=== PATIENT | female | born 1980 | race American Indian/Alaskan Native ===

== ENCOUNTER 2018-11-24 21:38 | Emergency (ER) | payer MEDICAID, MEDICARE, OTHER ==
[2018-11-24 21:38] VITALS: BMI 40.6
[2018-11-24 21:42] VITALS: BP 133/100; PULSE 85; RESP 16; TEMP 98.5; O2SAT 100
[2018-11-24 22:37] LABS: BASO # 0.1 K/uL (0.0-0.2); BASO % 0.8 % (0.0-2.0); EOS # 0.1 K/uL (0.0-0.7); EOS % 2.1 % (0.0-4.0); HEMOGLOBIN 11.4 g/dL (12.0-16.0); LYMPH # 1.6 K/uL (1.0-4.3); LYMPH % 24.8 % (20.0-40.0); MEAN CELL VOLUME 83.4 fl (81.0-99.0); MEAN CORPUSCULAR HEMOGLOBIN 26.8 pg (27.0-31.0); MEAN CORPUSCULAR HGB CONC 32.2 g/dL (33.0-37.0); MEAN PLATELET VOLUME 8.9 fl (7.2-11.7); MONO # 0.5 K/uL (0.0-0.8); MONO % 8.2 % (0.0-10.0); NEUT # 4.1 K/uL (1.8-7.0); NEUT % 64.1 % (50.0-75.0); NRBC % 0.1 % (0.0-0.0); RBC 4.26 Mil/uL (3.80-5.20); RED CELL DISTRIBUTION WIDTH 15.7 % (11.5-14.5); WHITE BLOOD COUNT 6.4 K/uL (4.8-10.8)
--- NOTE | 2018-11-24 22:46 | ED PDOC ---
HPI: Psych/Substance Abuse Time Seen by Provider: 11/24/18 21:52 Chief Complaint (Nursing): Substance Abuse Chief Complaint (Provider): substance abuse History Per: Patient, EMS Additional Complaint(s): 38 y/o female brought in by EMS for evaluation of substance abuse. Patient admits to using cocaine tonight; states she wants to be admitted so she can get off the streets. PAtient states she wants to talk to someone about her "mental health problems"; noncompliant with medications. Denies suicidal/homicidal ideations. Past Medical History Reviewed: Historical Data, Nursing Documentation, Vital Signs Vital Signs: Last Vital Signs Temp 98.5 F 11/24/18 21:39 Pulse 85 11/24/18 21:39 Resp 16 11/24/18 21:39 BP 133/100 H 11/24/18 21:39 Pulse Ox 100 11/24/18 21:39 - Medical History PMH: Anxiety, Bipolar Disorder, Depression, Personality Disorder, Schizophrenia Denies: Arthritis, Crohn's Disease, Diabetes, Diverticulitis, Fractures, Gastritis, Gall Bladder Disease, Hepatitis, HIV, HTN, Kidney Stones, Osteoporosis, Pancreatitis, Chronic Kidney Disease, Rheumatoid Arthritis, Se izures, Sexually Transmitted Disease - Surgical History Surgical History: Denies: Appendectomy - Family History Family History: States: Unknown Family Hx - Immunization History Hx Tetanus Toxoid Vaccination: Yes Hx Influenza Vaccination: No Hx Pneumococcal Vaccination: No - Home Medications Home Medications: Ambulatory Orders Medication Instructions Recorded No Known Home Med 11/16/18 - Allergies Allergies/Adverse Reactions: Allergies Allergy/AdvReac Type Severity Reaction Status Date / Time No Known Allergies Allergy Verified 11/24/18 21:39 Review of Systems ROS Statement: Except As Marked, All Systems Reviewed And Found Negative Physical Exam - Reviewed Nursing Documentation Reviewed: Yes Vital Signs Reviewed: Yes - Physical Exam Appears: Positive for: Well, Non-toxic, Uncomfortable (anxious, paranoid) Head Exam: Positive for: ATRAUMATIC, NORMAL INSPECTION, NORMOCEPHALIC Skin: Positive for: Normal Color Eye Exam: Positive for: Normal appearance ENT: Positive for: Normal ENT Inspection Cardiovascular/Chest: Positive for: Regular Rate, Rhythm Respiratory: Positive for: Normal Breath Sounds Gastrointestinal/Abdominal: Positive for: Normal Exam Back: Positive for: Normal Inspection Extremity: Positive for: Normal ROM Neurologic/Psych: Positive for: Alert, Oriented (x3) - Laboratory Results Result Diagrams: 11/24/18 22:31 11/24/18 22:31 - ECG O2 Sat by Pulse Oximetry: 100 - Progress ED Course And Treament: -accucheck -cbc -cmp -alcohol -urine drug screen -urinalysis -crisis eval 3:30 Patient awake, alert, oriented x3. Ambulating steady gait Patient evaluated by nozzle worker; does not meet criteria for admission at this time as per Dr. Lake Patient becoming aggressive towards ED staff. Refusing to leave Patient requires no further intervention in the ED and is stable for discharge at this time Patient removed from ED by security/[employer] police Disposition - Clinical Impression Clinical Impression: Substance abuse - Patient ED Disposition Is Patient to be Admitted: No Counseled Patient/Family Regarding: Studies Performed, Diagnosis, Need For Followup - Disposition Disposition: Routine/Home Disposition Time: 04:05 Condition: IMPROVED Instructions: Drug Abuse and Drug Addiction (DC)
[2018-11-24 23:00] LABS: ALB/GLOB RATIO 1.2 (1.0-2.1); ALBUMIN 4.1 g/dL (3.5-5.0); ALT/SGPT 28 U/L (9-52); AST/SGOT 32 U/L (14-36); BLOOD UREA NITROGEN 12 mg/dl (7-17); CALCIUM 8.8 mg/dL (8.4-10.2); GFR NON-AFRICAN AMERICAN > 60
== END 2018-11-25 04:45 | disposition home or self-care (01) ==
LOC: H.ER 21:38
DX: F14.10 Cocaine abuse, uncomplicated (principal); F20.9 Schizophrenia, unspecified; F31.9 Bipolar disorder, unspecified; F41.9 Anxiety disorder, unspecified; Z91.14 Patient's other noncompliance with medication regimen